=== PATIENT | male | born 1955 | race Caucasian/White ===

== ENCOUNTER → 2022-01-16 15:45 | Outpatient (BNVA) | payer MEDICARE, SELFPAY | PROVIDERS: Family Provider Family Medicine; Visit Provider Internal Medicine Cardiovascular Disease | DX: I10 Essential (primary) hypertension (principal); I25.10 Atherosclerotic heart disease of native coronary artery without angina pectoris; F17.200 Nicotine dependence, unspecified, uncomplicated; Z98.890 Other specified postprocedural states; R91.1 Solitary pulmonary nodule; E78.49 Other hyperlipidemia | CPT/HCPCS: 36415; 80053; 80061; 83721; 85025; 99214 ==

== ENCOUNTER 2022-03-07 12:03 | Outpatient (CLI) | payer MEDICARE, SELFPAY ==
--- NOTE | 2022-03-07 12:00 | CT_ITS ---
WS: [id number] LDCT LUNG CANCER SCREENING HISTORY: Chronic active smoker with 55 PKY h/o smoking TECHNIQUE: Axial imaging performed from the apices to 1 cm below the costophrenic angles. Coronal and sagittal reformats are submitted with axial MIP series. All CT scans at [facility] use at least one of these dose optimization techniques: automated exposure control; mA and/or kV adjustment per patient size (includes targeted exams where dose is matched to clinical indication); or iterativ e reconstruction. DLP: 85.30 mGy.cm DIvol: Mean CTDIvol: 1.60 (mGy) COMPARISON: 10/12/2017 Diagnostic quality: Satisfactory Lung Nodules: 2 to 3 mm nodules in the upper lung lee and subpleural nodule RIGHT lower lobe. The largest nodule is 3 mm at the RIGHT apex. Endobronchial lesion in the proximal LEFT mainstem bronchus . Nodule measures 7 mm. Lungs: No abnormality. Heart: Mildly enlarged heart. Mild scattered coronary artery calcifications. Other findings: Mild atherosclerosis aorta. Normal size pulmonary artery. Small hiatal hernia. Radha us low-attenuation nodules within the liver are unchanged and likely cysts. LEFT adrenal nodule 13 x 12 mm. Similar to the study from 2018. Moderate spondylitic changes in the thoracic spine. CT/CT lung screening [id number] IMPRESSION: LUNG-RADS: 4A-Probably Suspicious FOLLOW UP: 3 Month LDCT OTHER FINDINGS (S MODIFIER): None. Short-term follow-up low-dose CT recommended for the endobronchial lesion.
== END 2022-03-07 12:04 | disposition home or self-care (01) ==
LOC: RAD 12:05
PROVIDERS: Family Provider Family Medicine; Visit Provider Internal Medicine Cardiovascular Disease
DX: Z12.2 Encounter for screening for malignant neoplasm of respiratory organs (principal); F17.210 Nicotine dependence, cigarettes, uncomplicated; R91.1 Solitary pulmonary nodule
CPT/HCPCS: 71271

== ENCOUNTER 2022-05-24 16:41 | Outpatient (CLI) | payer MEDICARE, SELFPAY ==
--- NOTE | 2022-05-24 17:00 | CT_ITS ---
WS: [id number] CT CHEST WITHOUT INTRAVENOUS CONTRAST HISTORY: 7 mm nodule in left main stem bronchus/multiple nodules TECHNIQUE: Contiguous 5 mm axial imaging performed on the thorax. Coronal and sagittal reformats are submitted. All CT scans at [facility] use at least one of these dose optimization techniques: automated exposure control; mA and/or kV adjustment per patient size (includes targeted exams where dose is matched to clinical indication); or iterative reconstruction. CONTRAST: None DLP: 294.01 mGy.cm COMPARISON: 03/07/2022 Lungs and central airway: Mild pulmonary hyperexpansion. LEFT proximal main bronchus lesions no longe r present. This is probably mucous secretion. No enlargement of the micronodules in the upper lobes o r subpleural, subcentimeter nodules in the lower lobes. No pneumonia. Pleura: Normal. No pleural effusion. Heart and pericardium: Normal size. No coronary artery calcifications. Mediastinum and rui: No mediastinum or hilar adenopathy. Vessels: Mild atherosclerosis aorta. Normal size pulmonary artery. Moderate coronary artery calcifica tion. Chest wall and lower neck: No soft tissue masses. Upper abdomen: Low-attenuation lesions within the liver are unchanged since 2018. Mild stable thicken ing and nodularity of the LEFT adrenal gland. Small hiatal hernia. Splenic granulomata. Osseous structures: Moderate degenerative changes throughout the thoracic spine. CT/CT chest wo con [id number] IMPRESSION: 1. Interval resolution LEFT mainstem bronchial nodule which is probably mucous secretion. 2. No interval change micronodules upper lung lee and the subpleural nodule s in the lower lung lee. 3. Mild atherosclerosis aorta. No adenopathy. 4. Hepatic cysts and small hiatal hernia.
== END 2022-05-24 16:42 | disposition home or self-care (01) ==
LOC: RAD 16:43
PROVIDERS: Visit Provider Internal Medicine Cardiovascular Disease
DX: R91.1 Solitary pulmonary nodule (principal); F17.200 Nicotine dependence, unspecified, uncomplicated; K76.89 Other specified diseases of liver; K44.9 Diaphragmatic hernia without obstruction or gangrene; I70.0 Atherosclerosis of aorta
CPT/HCPCS: 71250

== ENCOUNTER → 2023-01-15 15:23 | Outpatient (BNVA) | payer MEDICARE, SELFPAY | PROVIDERS: Visit Provider Internal Medicine Cardiovascular Disease | DX: I10 Essential (primary) hypertension (principal); E78.5 Hyperlipidemia, unspecified; I25.10 Atherosclerotic heart disease of native coronary artery without angina pectoris | CPT/HCPCS: 36415; 80053; 80061; 85025; 99214 ==

== ENCOUNTER → 2023-12-15 09:18 | Outpatient (BNVA) | payer MEDICARE, SELFPAY | PROVIDERS: Visit Provider Internal Medicine | DX: I25.10 Atherosclerotic heart disease of native coronary artery without angina pectoris (principal); I10 Essential (primary) hypertension; F17.200 Nicotine dependence, unspecified, uncomplicated; E78.49 Other hyperlipidemia; R91.1 Solitary pulmonary nodule | CPT/HCPCS: 99213 ==

== ENCOUNTER 2024-07-15 17:44 | Inpatient (IN) | payer MEDICARE, SELFPAY ==
[2024-07-15] VITALS (7 sets, daily range): BP systolic 80–118; BP diastolic 58–76; PULSE 71–112; RESP 17–20; TEMP 36.7–36.9; O2SAT 91–100; BMI 23.6
[2024-07-15 18:18] LABS: Basophils % 0.4 %; Eosinophils % 0.1 %; Hematocrit 30.9 % (37-53); Lymphocytes # 0.9 10^3/uL (0.8-4.8); Lymphocytes % 11.7 %; Mean Corpuscular Hemoglobin 30.9 pg (27-33); Mean Corpuscular Volume 90.9 fl (82-101); Mean Platelet Volume 9.2 fL (7.4-10.4); Monocytes # 0.3 10^3/uL (0.2-0.9); Monocytes % 3.5 %; Neutrophils # 6.73 10^3/uL (1.8-7.7); Neutrophils % 83.8 %; Nucleated Red Blood Cells % 0 %; Platelet Count 290 10^3/cmm (157-399); Red Cell Distribution Width 13.2 % (12.1-15.1); White Blood Count 8.03 10^3/uL (3.29-11.43)
--- NOTE | 2024-07-15 18:33 | ED_ITS ---
HPI - GI Bleed 2 General: Chief complaint: GI Bleed Stated complaint: blood in stool History of Present Illness: 68-year-old man with history of hyperten sunshine, hyperlipidemia and coronary artery disease status post stents in 2018 and anticoagulation on Plavix who presents to the emergency room with complaints of black tarry stools and weakness. He says overnight he had multiple episodes of black tarry stools. Today he feels very weak. He says maybe mildly lightheaded but no altered mental status. No fevers. No abdominal pain. No vomiting. He has never had colonoscopy or endoscopy. Never had any GI bleeds in the past. Related Data Home Medications ?Medication ?Instructions ?Recorded ?Confirmed aspirin 81 mg tablet,delayed 81 mg PO DAILY 05/17/19 0 12/15/23 release (Adult Low Dose Aspirin) Previous Rx's ?Medication ?Instructions ?Recorded lisinopril 40 mg tablet 40 mg PO DAILY #90 tabs 01/16 08/07 metoprolol succinate 25 mg 25 mg PO DAILY #90 tabs tablet,extended release 24 hr hydrochlorothiazide 25 mg tablet See Rx Instructions . Route 03/08/24 .COMPLEX #90 tabs clopidogrel 75 mg tablet (Plavix) 75 mg PO DAILY #90 t abs 03/23/24 simvastatin 40 mg tablet See Rx Instructions .Route 0 04/16/24 .COMPLEX #90 tabs Allergies Allergy/AdvReac Type Severity Reaction Status Date / Time No Known Allergies Allergy Verified 12/15/23 09:27 Review of Systems 2 Narrative: Constitutional symptoms: Negative except as documented in HPI. Skin symptoms: Negative except as documented in HPI. Eye symptoms: Negative except as documented in HPI. ENMT symptoms: Negative except as documented in HPI. Respiratory symptoms: Negative except as documented in HPI. Cardiovascular symptoms: Negative except as documented in HPI. Gastrointestinal symptoms: Negative except as documented in HPI. Genitourinary symptoms: Negative except as documented in HPI. Musculoskeletal symptoms: Negative except as documented in HPI. Neurologic symptoms: Negative except as documented in HPI. Psychiatric symptoms: Negative except as documented in HPI. Endocrine symptoms: Negative except as documented in HPI. PFSH ED 2 PFSH: Medical History Lung nodule Current smoker ASHD (arteriosclerotic heart disease) Hyperlipidemia HTN (hypertension) History of non-ST elevation myocardial infarction (NSTEMI) Surgical History S/P knee surgery ACL left knee Family History Father Diabetes Hypertension Social History Smoking and tobacco/nicotine status: current every day tobacco/nicotine user Physical Exam 2 Narrative: EXAM NARRATIVE: General: Alert, no acute distress. Skin: Warm, dry. Pale appearing Head: Normocephalic, atraumatic. Neck: Supple, trachea midline. Eye: Extraocular movements are intact. Ears, nose, mouth and throat: mucosa moist. Cardiovascular: Regular, Normal peripheral perfusion. Respiratory: Lungs are clear to auscultation, respirations are non-labored, breath sounds are equal, Symmetrical chest wall expansion. Gastrointestinal: Soft, Nontender, Non distended Musculoskeletal: Normal ROM, no deformity. Neurological: Alert and oriented, No focal neurological deficit observed. Psychiatric: Cooperative, appropriate mood & affect. Course 2 Vital Signs: Vital signs: Vital Signs Temperature 98.0 F 07/15/24 17:50 Pulse Rate 77 07/15/24 19:35 Respiratory Rate 18 07/15/24 19:35 Blood Pressure 118/76 07/15/24 19:35 Pulse Oximetry 100 07/15/24 19:35 Oxygen Delivery Me thod Nasal Cannula 07/15/24 18:40 Oxygen Flow Rate 3 07/15/24 18:40 MDM - GI Bleed Medical Decision Making Medical decision making: Differential diagnosis including but not limited to and based on the above HPI, review of systems and physical exam: In a patient with upper GI bleeding would have concern for upper gi bleed from varices or ulcer. Concern for anemia. Concern for liver disease. concern for anticoagulation. Orders placed to evaluate differential diagnosis based on the above differential, HPI and physical exam Lab Review: Laboratory results were reviewed and interpreted by myself the emergency room physician. No leukocytosis. Hemoglobin is down to 10.5 from almost 15 a couple of years ago. Platelets are normal. Liver enzymes are normal. Patient's BUN and creatinine are significantly elevated at 74 and 1.4 in a pattern that would suggest recent upper GI bleeding. Coags normal. Platelets normal. I reviewed the patient's medical record. Reexamination: Patient's blood pressure responded slightly to fluids getting up to over 100. Initially he was in the low 90s and upper 80s systolic. No increased work of breathing. No altered mental status. No focal motor deficits. Patient has had no further black tarry stools while here in the emergency room. No vomiting. Consultation: I spoke with Dr. Lozano with general surgery who recommends admission to the ICU. He agrees with Protonix and fluids. He will plan for endoscopy tomorrow morning. Consultation: I spoke with Dr. August who is on-call for the hospitalist service who agrees to admission. Assessment and plan: Upper GI bleeding Anticoagulation on Plavix ?2 L normal saline. 80 mg IV Protonix. No further bleeding at this time. Type and screen sent. -I discussed the patient with the hospitalist on-call who is admitting the patient. - Discussed findings and plan with patient. Answered any questions. - All laboratory values were reviewed and interpreted personally by myself, the ER physician - All imaging was reviewed and interpreted personally by myself, the ER physician. - Evaluation and treatment of this problem were appropriate in the emergency setting Lab Data 07/15/24 18:08 07/15/24 18:08 Laboratory Results WBC 8.03 10^3/uL (3.29-11.43) 07/15/24 18:08 RBC 3.40 10^6/uL (3.85-5.65) L 07/15/24 18:08 Hgb 10.50 g/dL (11.27-16.99) L 07/15/24 18:08 Hct 30.9 % (37-53) L 07/15/24 18:08 MCV 90.9 fl (82-101) 07/15/24 18:08 MCH 30.9 pg (27-33) 07/15/24 18:08 MCHC 34.0 g/dL (30-55) 07/15/24 18:08 RDW 13.2 % (12.1-15.1) 07/15/24 18:08 Plt Count 290 10^3/cmm (157-399) 07/15/24 18:08 MPV 9.2 fL (7.4-10.4) 07/15/24 18:08 Neut % (Auto) 83.8 % 07/15/24 18:08 Lymph % (Auto) 11.7 % 07/15/24 18:08 Sanders % (Auto) 3.5 % 07/15/24 18:08 Eos % (Auto) 0.1 % 07/15/24 18:08 Baso % (Auto) 0.4 % 07/15/24 18:08 Neut # (Auto) 6.73 10^3/uL (1.8-7.7) 07/15/24 18:08 Lymph # (Auto) 0.9 10^3/uL (0.8-4.8) 07/15/24 18:08 Sanders # (Auto) 0.3 10^3/uL (0.2-0.9) 07/15/24 18:08 Eos # (Auto) 0.0 10^3/uL (0.0-0.8) 07/15/24 18:08 Baso # (Auto) 0.0 10^3/uL (0.0-0.1) 07/15/24 18:08 Nucleated RBC % (auto) 0 % 07/15/24 18:08 Nucleated RBCs # 0.0 /100WBC 07/15/24 18:08 PT 13.00 SECONDS (12.1-14.9) 07/15/24 18:08 INR 0.92 (0.8-1.2) 07/15/24 18:08 APTT 23.8 SECONDS (23.9-36.7) L 07/15/24 18:08 Sodium 136 mmol/L (136-145) 07/15/24 18:08 Potassium 4.3 mmol/L (3.5-5.1) 07/15/24 18:08 Chloride 100 mmol/L (98-107) 07/15/24 18:08 Carbon Dioxide 21 mmol/L (22-29) L 07/15/24 18:08 Anion Gap 19.3 (5-19) H 07/15/24 18:08 BUN 74 mg/dL (8-23) H 07/15/24 18:08 Creatinine 1.4 mg/dL (0.7-1.2) H 07/15/24 18:08 GFR Calculation 50.1 mL/min (90-130) L 07/15/24 18:08 Glucose 167 mg/dL (65-115) H 07/15/24 18:08 Calculated Osmolality 308 mOsm/kg (285-295) H 07/15/24 18:08 Lactic Acid 2.1 mmol/L (0.5-2.2) 07/15/24 18:08 Calcium 9.0 mg/dL (8.5-10.5) 07/15/24 18:08 Total Bilirubin 0.2 mg/dL (0.15-1.2) 07/15/24 18:08 AST 11 U/L (0-40) 07/15/24 18:08 ALT 9 U/L (0-41) 07/15/24 18:08 Alkaline Phosphatase 51 U/L (40-130) 07/15/24 18:08 Total Protein 6.1 g/dL (6.6-8.7) L 07/15/24 18:08 Albumin 3.6 g/dL (3.5-5.2) 07/15/24 18:08 Globulin 2.5 g/dL (1.3-4.6) 07/15/24 18:08 Blood Type O Positive 07/15/24 18:08 Rho(D) Type Rh positive 07/15/24 18:08 Antibody Screen Negative 07/15/24 18:08 No radiology studies performed this visit Discharge Plan Discharge Condition: Stable Prescriptions: No Action aspirin [Adult Low Dose Aspirin] 81 mg tablet,delayed release (DR/EC) 81 mg PO DAILY lisinopril 40 mg tablet 40 mg PO DAILY Qty: 90 3RF metoprolol succinate 25 mg tablet extended release 24 hr 25 mg PO DAILY Qty: 90 3RF hydrochlorothiazide 25 mg tablet See Rx Instructions .ROUTE .COMPLEX Qty: 90 3RF Dose Instruction: TAKE 2 TABLETS (25MG) DAILY Rx Instructions: TAKE 1 TABLETS (25MG) DAILY clopidogrel [Plavix] 75 mg tablet 75 mg PO DAILY Qty: 90 3RF simvastatin 40 mg tablet See Rx Instructions .ROUTE .COMPLEX Qty: 90 3RF Dose Instruction: TAKE 1 TABLET DAILY Rx Instructions: TAKE 1 TABLET DAILY Print Language: Emirati Coding Level of Care Code ED Line Therapist for Nabila Baker
[2024-07-15 18:34] LABS: INR 0.92 (0.8-1.2)
[2024-07-15 18:35] LABS: Partial Thromboplastin Time 23.8 SECONDS (23.9-36.7)
[2024-07-15 18:39] LABS: Alanine Aminotransferase 9 U/L (0-41); Albumin Level 3.6 g/dL (3.5-5.2); Alkaline Phosphatase 51 U/L (40-130); Anion Gap 19.3 (5-19); Aspartate Amino Transferase 11 U/L (0-40); Blood Urea Nitrogen 74 mg/dL (8-23); Carbon Dioxide 21 mmol/L (22-29); Chloride 100 mmol/L (98-107); Creatinine Clr Calc Pharmacy 49.9464; Globulin 2.5 g/dL (1.3-4.6); Glomerular Filtration Rate 50.1 mL/min (90-130); Glucose 167 mg/dL (65-115); Osmolality Calculated 308 mOsm/kg (285-295); Potassium 4.3 mmol/L (3.5-5.1); Sodium 136 mmol/L (136-145); Total Bilirubin 0.2 mg/dL (0.15-1.2); Total Protein 6.1 g/dL (6.6-8.7)
[2024-07-15] MEDS: sodium chloride 0.9% 1,000 ML 999 ML IV ×2 (18:39→19:26)
[2024-07-15] MEDS: pantoprazole 40 mg SDV 80 MG IVP (18:39)
[2024-07-15 18:40] LABS: Lactic Sepsis W/Reflex 2.1 mmol/L (0.5-2.2)
--- NOTE | 2024-07-15 19:52 | P.HP_ITS ---
Providers/Chief Complaint 2 Admitting Physician: Kayode August MD Chief Complaint: blood in stool History of Present Illness Jason Pantoja is a 68 year old male PTCA and stent 2018 to LAD with 1 drug- eluting stent. Also had luminal irregularities in the left main proximal 30% LAD and circumflex 60% the prestent LAD stenosis shortly after the first septal branch was 90% Patient continues on aspirin and Plavix but does not have chest pain. He smokes 1 pack/day. 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 He denies vomiting stools are little loose but water remained clear with the stooling no bright red blood. Patient had 1 episode of sweats with ambulation he was dyspneic on exertion but denies palpitations or vision change. Has not had coughing. Patient was found to have hemoglobin 10 down from baseline of 14. He is referred to general surgeon for evaluation and will have EGD in the morning. He is requested to be admitted. Patient received 2 fluid boluses vital signs are much improved. He was hypotensive on presentation with systolic 60/50 then 89/64 now 115/70 heart rate 74 Review of Systems 2 Narrative: General no fevers chills no weight gain or weight loss Cardiovascular no chest pain palpitations or edema Resp no shortness of breath cough wheezing he does have dyspnea on exertion GI no nausea vomiting he has had loose dark stools but not diarrhea no constipation no dysuria hematuria Neuro no seizure strokes limb weakness Musculoskeletal no pain Medications/Allergies Home Medications ?Medication ?Instructions ?Recorded ?Confirmed ?Last Taken ?Type aspirin 81 mg tablet,delayed 81 mg PO DAILY 05/17/19 0 12/15/23 Unknown History release (Adult Low Dose Aspirin) lisinopril 40 mg tablet 40 mg PO DAILY #90 tabs 01/16 08/07 Unknown Rx metoprolol succinate 25 mg 25 mg PO DAILY #90 tabs Unknown Rx tablet,extended release 24 hr hydrochlorothiazide 25 mg tablet See Rx Instructions . Route 03/08/24 Unknown Rx .COMPLEX #90 tabs clopidogrel 75 mg tablet (Plavix) 75 mg PO DAILY #90 t abs 03/23/24 Unknown Rx simvastatin 40 mg tablet See Rx Instructions .Route 0 04/16/24 Unknown Rx .COMPLEX #90 tabs Allergies Allergy/AdvReac Type Severity Reaction Status Date / Time No Known Allergies Allergy Verified 12/15/23 09:27 PFSH Acute 2 PFSH: Medical History (Updated 07/15/24 @ 20:02 by Kayode August MD) Presence of drug coated stent in LAD coronary artery Lung nodule Current smoker ASHD (arteriosclerotic heart disease) Hyperlipidemia HTN (hypertension) History of non-ST elevation myocardial infarction (NSTEMI) Surgical History H/O vasectomy S/P knee surgery ACL left knee Family History Father Diabetes Hypertension Social History (Updated 07/15/24 @ 20:01 by Kayode August MD) Smoking and tobacco/nicotine status: current every day tobacco/nicotine user cigarettes Packs smoked per day: 1 Years cigarettes smoked: 50 Alcohol intake: former Additional social history: Wants full code Household members: spouse Marital status: Vitals/I&O/Wt Last Vital Signs Temp 98.0 F 07/15/24 17:50 Pulse 77 07/15/24 19:35 Resp 18 07/15/24 19:35 BP 118/76 07/15/24 19:35 Pulse Ox 100 07/15/24 19:35 O2 Del Method Nasal Cannula 07/15/24 18:40 O2 Flow Rate 3 07/15/24 18:40 Weight last 48 hrs Weight 70.307 kg Physical Exam 2 Narrative: General well-developed well-nourished thin male in no acute cardiopulmonary stress CV regular rate and rhythm Lungs clear to auscultation bilaterally Abdomen positive bowel sounds soft nontender Calves no tenderness cords or pedal edema Neuro moves all extremities symmetrically speech is clear face is symmetric Data 07/15/24 18:08 07/15/24 18:08 A&P Assessment and plan (1) Upper GI bleed: Continue with Protonix twice a day 40 mg IV. Hold aspirin and Plavix. Hold blood pressure medicines for now except for the metoprolol 25 mg XL daily. Patient will be n.p.o. after midnight and should be only on clear liquids or ice chips for now until morning for EGD (2) Orthostatic hypotension: Additional second liter bolus now and continue with IV fluids we will check orthostatic blood pressures every shift (3) ASHD (arteriosclerotic heart disease): Stable with LAD drug-eluting stent. He has had this since 2018. Consider dropping the clopidogrel (4) Current smoker: Start nicotine patch 21 mg daily. I counseled the patient regarding vascular disease and smoking. PDMP PDMP Reviewed: Not Reviewed Attestations 2 Medical Necessity Statement*: Patient will be in the hospital for anticipated 2 midnights Coding Level of Care Code 01315 Diagnoses Upper GI bleed K92.2 Orthostatic hypotension I95.1 ASHD (arteriosclerotic heart disease) I25.10 Current smoker F17.200 Time Spent (min) 70
[2024-07-15 20:02] LABS: Reflex Lactate Order REFLEX LACTIC ORDERD
[2024-07-15 20:51] LABS: Lactic Acid level (Lactate) 1.2 mmol/L (0.5-2.2)
[2024-07-15] MEDS: D5-NS 0.45% + KCL 20 mEq 20 MEQ/1,000 ML BAG 125 MEQ IV (21:35)
[2024-07-16] VITALS (14 sets, daily range): BP systolic 92–114; BP diastolic 60–70; PULSE 54–74; RESP 15–18; TEMP 36.1–36.8; O2SAT 92–100
[2024-07-16 05:10] LABS: Basophils % 0.3 %; Eosinophils % 0.5 %; Hematocrit 24.1 % (37-53); Lymphocytes # 1.4 10^3/uL (0.8-4.8); Lymphocytes % 18.6 %; Mean Corpuscular HGB Conc 33.6 g/dL (30-55); Mean Corpuscular Hemoglobin 31.3 pg (27-33); Mean Corpuscular Volume 93.1 fl (82-101); Mean Platelet Volume 9.4 fL (7.4-10.4); Monocytes # 0.4 10^3/uL (0.2-0.9); Monocytes % 5.8 %; Neutrophils # 5.47 10^3/uL (1.8-7.7); Neutrophils % 74.4 %; Nucleated Red Blood Cells % 0 %; Platelet Count 224 10^3/cmm (157-399); Red Blood Count 2.59 10^6/uL (3.85-5.65); Red Cell Distribution Width 13.3 % (12.1-15.1); White Blood Count 7.36 10^3/uL (3.29-11.43)
[2024-07-16] MEDS: pantoprazole 40 mg SDV IVP (05:18)
[2024-07-16] MEDS: D5-NS 0.45% + KCL 20 mEq 20 MEQ/1,000 ML BAG 125 MEQ IV (05:19)
[2024-07-16 05:26] LABS: Anion Gap 12.7 (5-19); Blood Urea Nitrogen 58 mg/dL (8-23); Carbon Dioxide 24 mmol/L (22-29); Chloride 105 mmol/L (98-107); Creatinine Clr Calc Pharmacy 55.4032; Glomerular Filtration Rate 54.6 mL/min (90-130); Glucose 105 mg/dL (65-115); Osmolality Calculated 303 mOsm/kg (285-295); Potassium 3.7 mmol/L (3.5-5.1); Sodium 138 mmol/L (136-145)
--- NOTE | 2024-07-16 08:50 | ANES.PREANE2 ---
Pre-Anesthetic Assessment Height/Weight: Height 5 ft 10 in Weight 166 lb 14.4 oz Temp Pulse Resp BP Pulse Ox O2 Del Method O2 Flow Rate 97.8 F 66 17 98/63 100 Nasal Cannula 2 07/16/24 07:47 07/16/24 07:47 07/16/24 07:47 07/16/24 07:47 07/16/24 07:47 07/16/24 07:47 07/16/24 07:47 Preop Diagnosis: GI bleed Operation Date: 07/16/24 09:15 Proposed Procedures p EGD with possible biopsy, possible bleeding control(Not Applicable) - Juan Carlos Lozano MD Operation Date: 07/16/24 09:30 Proposed Procedures p EGD(Not Applicable) - Juan Carlos Lozano MD Was Beta Geetha taken within 24 hours: Yes Was Clonidine taken within 24 hours: N/A Last intake: Intake Last Liquid Date 07/15/24 Last Liquid Time 23:00 Last Solid Date 07/15/24 Last Solid Time 12:00 Social Tobacco and No tobacco Exam alert, oriented x 3, clear to auscultation bilaterally and regular rate & rhythm Airway Submandibular: within normal limits Cervical ROM: within normal limits Mallampati: Class III Dentition: full Comments: Comments: Smaller mouth opening Anesthetic Plan ASA status: 3 Anesthesia: MAC Other: Patient presents yesterday evening with dark tarry stools. Hemoglobin 10 at admission, 8.1 this a.m. No prior issues with anesthesia History of CAD, s/p stent 2017. On chronic Plavix. Last taken 07/15/2024 Hypertension on lisinopril and hydrochlorothiazide as well as metoprolol Current smoker Vital stable this a.m., BP 98/63. Patient is on 2 L nasal cannula Type and screen performed Plan for MAC anesthesia Medications/Allergies Home Medications ?Medication ?Instructions ?Recorded ?Confirmed ?Last Taken ?Type aspirin 81 mg tablet,delayed 81 mg PO DAILY 05/17/19 07/15/24 07/15/24 History release (Adult Low Dose Aspirin) lisinopril 40 mg tablet 40 mg PO DAILY #90 tabs 02/09/24 07/15/24 07/15/24 Rx metoprolol succinate 25 mg 25 mg PO DAILY #90 tabs 02/10/24 07/15/24 07/15/24 Rx tablet,extended release 24 hr hydrochlorothiazide 25 mg tablet See Rx Instructions .Route 03/08/24 07/15/24 07/15/24 Rx .COMPLEX #90 tabs clopidogrel 75 mg tablet (Plavix) 75 mg PO DAILY #90 tabs 03/23/24 07/15/24 07/15/24 Rx simvastatin 40 mg tablet See Rx Instructions .Route 04/16/24 07/15/24 07/14/24 Rx .COMPLEX #90 tabs acetaminophen 500 mg capsule 1,000 mg PO Q6H PRN Pain 07/15/24 07/15/24 07/15/24 History naproxen sodium 220 mg tablet 440 mg PO BID PRN Pain 07/15/24 07/15/24 07/15/24 History Allergies Allergy/AdvReac Type Severity Reaction Status Date / Time No Known Allergies Allergy Verified 12/15/23 09:27 Current Medications Generic Name Dose Route Start Last Admin Trade Name Freq PRN Reason Stop Dose Admin Potassium Chloride/Dextrose/Sod Cl 20 meq in 1,000 mls @ 125 mls/hr 07/15/24 21:07 07/16/24 05:19 D5-Ns 0.45% + Kcl 20 Meq IV 125 mls/hr .Q8H ATIYA Administration Pantoprazole Sodium 40 mg 07/16/24 06:00 07/16/24 05:18 Pantoprazole 40 Mg Sdv IVP 40 mg Q12H ATIYA Administration PFSH Anesthesia Medical History (Updated 07/15/24 @ 20:02 by Kayode August MD) Presence of drug coated stent in LAD coronary artery Lung nodule Current smoker ASHD (arteriosclerotic heart disease) Hyperlipidemia HTN (hypertension) History of non-ST elevation myocardial infarction (NSTEMI) Surgical History H/O vasectomy S/P knee surgery ACL left knee Family History Father Diabetes Hypertension Social History (Updated 07/15/24 @ 20:01 by Kayode August MD) Smoking and tobacco/nicotine status: current every day tobacco/nicotine user cigarettes Packs smoked per day: 1 Years cigarettes smoked: 50 Alcohol intake: former Additional social history: Wants full code Household members: spouse Marital status: Data Anesthesia 07/16/24 04:23 07/16/24 04:23 Short CBC 07/15/24 07/16/24 Range/Units 18:08 04:23 WBC 8.03 7.36 (3.29-11.43) 10^3/uL Hgb 10.50 L 8.10 L (11.27-16.99) g/dL Hct 30.9 L 24.1 L (37-53) % MCV 90.9 93.1 (82-101) fl Plt Count 290 224 (157-399) 10^3/cmm Neut % (Auto) 83.8 74.4 % Neut # (Auto) 6.73 5.47 (1.8-7.7) 10^3/uL BMP 07/15/24 07/16/24 18:08 04:23 Sodium 136 138 Potassium 4.3 3.7 Chloride 100 105 Carbon Dioxide 21 L 24 BUN 74 H 58 H Creatinine 1.4 H 1.3 H Glucose 167 H 105 Calcium 9.0 8.0 L Liver Function 07/15/24 Range/Units 18:08 Total Bilirubin 0.2 (0.15-1.2) mg/dL AST 11 (0-40) U/L ALT 9 (0-41) U/L Alkaline Phosphatase 51 (40-130) U/L Albumin 3.6 (3.5-5.2) g/dL Blood Bank 07/15/24 18:08 Blood Type O Positive Rho(D) Type Rh positive Antibody Screen Negative Coags 07/15/24 18:08 PT 13.00 INR 0.92 APTT 23.8 L
--- NOTE | 2024-07-16 09:09 | P.CONIM_ITS ---
Providers/Reason For Consult 2 Consulting Physician/Specialty*: Kayode August MD hospitalist Reason for Consult*: Evaluate upper GI bleed Requesting Physician: Kayode August MD hospitalist Attending Physician: Karin Toure MD History of Present Illness History of Present Illness Jason Pantoja is a 68 year old male with a day history of black stools and drop of hgb from about 12 now 6 with VSS and slowing or stopped black stools. He has never had endoscopy before either EGD or colonoscopy. Dad was a smoker and from metastatic cancer of unknown primary in his . He is on plavix for stent placed about 4-5 years ago. No recent MS, CVA or VTE. He denies history of cirrhosis or previous PUD and denies pain or N/V. He does not drink alcohol currently. Review of Systems 2 Narrative: Constitutional: denies rigors, singnificant weight gain, increased appetite HEENT: denies chronic cough, blurry vision, excessive tearing, eye pain, flashing lights, odynophagia, painful mastication, change in voice, change in taste, chronic sore throat, hypersalivation Heart: denies racing heart, palpitations, othropnea, PND Lungs: denies hemoptysis, pain with deep inspiration, chronic bronchitis GI: denies hematemesis, hematochezia, dysphagia, tenesmus : denies polyuria, hematuria, painful micturation Musculoskeletal: denies hemarthrosis, Muscle wasting, change in amubation Neuro: denies new onset syncope, dysesthesia, dysequilibrium, ptosis eyelid or face SKin: denies new onset hyperalgia, new rash new cyanosis Endocrine: denies new polyuria, polydipsia, polyphagia, heat intolerance, excessive energy Hem/Onc: denies new petechiae, swollen glands, new excessive epstaxis Psych: denies racing thought Medications/Allergies Home Medications ?Medication ?Instructions ?Recorded ?Confirmed ?Last Taken ?Type aspirin 81 mg tablet,delayed 81 mg PO DAILY 05/17/19 0 07/15/24 07/15/24 History release (Adult Low Dose Aspirin) lisinopril 40 mg tablet 40 mg PO DAILY #90 tabs 01/1607/15/24 07/15/24 Rx metoprolol succinate 25 mg 25 mg PO DAILY #90 tabs 07/15/24 07/15/24 Rx tablet,extended release 24 hr hydrochlorothiazide 25 mg tablet See Rx Instructions . Route 03/08/24 07/15/24 07/15/24 Rx .COMPLEX #90 tabs clopidogrel 75 mg tablet (Plavix) 75 mg PO DAILY #90 t abs 03/23/24 07/15/24 07/15/24 Rx simvastatin 40 mg tablet See Rx Instructions .Route 0 04/16/24 07/15/24 07/14/24 Rx .COMPLEX #90 tabs acetaminophen 500 mg capsule 1,000 mg PO Q6H PRN Pain 07/15/24 07/15/24 07/15/24 History naproxen sodium 220 mg tablet 440 mg PO BID PRN Pain 0 07/15/24 07/15/24 07/15/24 History Allergies Allergy/AdvReac Type Severity Reaction Status Date / Time No Known Allergies Allergy Verified 12/15/23 09:27 Current Medications Generic Name Dose Route Start Last Admin Trade Name Freq PRN Reason Stop Dose Admin Potassium Chloride/Dextrose/Sod Cl 20 meq in 1,000 mls @ 125 mls/hr 07/15/24 21:07 07/16/24 05:19 D5-Ns 0.45% + Kcl 20 Meq IV 125 mls/hr .Q8H ATIYA Administration Pantoprazole Sodium 40 mg 07/16/24 06:00 07/16/24 05:18 Pantoprazole 40 Mg Sdv IVP 40 mg Q12H ATIYA Administration PFSH Acute 2 PFSH: Medical History (Updated 07/15/24 @ 20:02 by Kayode August MD) Presence of drug coated stent in LAD coronary artery Lung nodule Current smoker ASHD (arteriosclerotic heart disease) Hyperlipidemia HTN (hypertension) History of non-ST elevation myocardial infarction (NSTEMI) Surgical History H/O vasectomy S/P knee surgery ACL left knee Family History Father Diabetes Hypertension Social History (Updated 07/15/24 @ 20:01 by Kayode August MD) Smoking and tobacco/nicotine status: current every day tobacco/nicotine user cigarettes Packs smoked per day: 1 Years cigarettes smoked: 50 Alcohol intake: former Additional social history: Wants full code Household members: spouse Marital status: Vitals/I&O/Wt Last Vital Signs Temp 97.8 F 07/16/24 07:47 Pulse 66 07/16/24 07:47 Resp 17 07/16/24 07:47 BP 98/63 07/16/24 07:47 Pulse Ox 100 07/16/24 07:47 O2 Del Method Nasal Cannula 07/16/24 07:47 O2 Flow Rate 2 07/16/24 07:47 07/15/24 07/16/24 07/16/24 22:59 06:59 14:59 Intake Total 1349.65 / 1349.65 966.667 / 2316.317 320 / 320 Balance 1349.65 / 1349.65 966.667 / 2316.317 320 / 320 Weight last 48 hrs Weight 166 lb 14.4 oz Weight 165 lb Weight 155 lb Physical Exam 2 Narrative: Patient is a well developed well nourished and in NAD and is afebrile with vitals stable and is answering questions appropriately with a normal affect and is alert and oriented x3 HEENT: normocephalic with normal external ears and nonicteric, oral mucosa moist and dentition normal for age, trachea midline with no large masses visualized Heart: RRR, no gallops murmurs or rubs, normal PMI with no thrills Lungs: normal excursions, no loud audible wheezing, no subcutaneous emphysema Abdomen: nondistended, no gross hepatosplenomegaly, no masses, no rigidity or rebound, no loud borborygmi Neuro: nonfocal, PETERS, grossly normal sensation Musculoskeletal: good muscle tone, no fasciculations, normal gait Skin: pink warm and dry with no rashes or ecchymosis Vascular: good radial pulses, no ulceration, less than 2 second capillary refill in hand : deferred Data 07/16/24 04:23 07/16/24 04:23 A&P Assessment and plan (1) Upper GI bleed: Plan Patient is hemodynamically stable but hgb down from normal to 8 today with no recent black stools. He is on plavix for heart stent about 4-5 years ago. Will undergo EGD with possible control of bleeding with clips,cautery, injection or combination of these. Risks include bleeding, infection, peroforation, missed lesion, more procedures, aspiration. PDMP PDMP Reviewed: Not Reviewed Coding Level of Care Code 14156 Diagnoses Upper GI bleed K92.2
--- NOTE | 2024-07-16 10:05 | ANE.PACU2 ---
Inpatient post-anesthesia follow up: Airway intact: Yes Vital signs: Temperature 97.8 F Pulse Rate 66 Respiratory Rate 16 Blood Pressure 104/67 Pulse Oximetry 100 Oxygen Delivery Me thod Room Air Oxygen Flow Rate 2 Fraction of Inspir ed Oxygen Hydration adequate: Yes Nausea and vomiting: No Pain level: 1 Mental status: Baseline
[2024-07-16] MEDS: atorvastatin 40 mg Tablet 20 MG PO (10:25)
[2024-07-16 10:45] LABS: Hematocrit 24.8 % (37-53)
[2024-07-16] MEDS: sucralfate 1 gm/10 mL Oral Liq UDC PO ×3 (10:57→20:54)
--- NOTE | 2024-07-16 11:21 | PC.SOCIAL ---
IMM Updated Updated pt on IMM. No questions voiced. Provided pt a copy. Initialed, dated, & timed a copy & placed in chart.
--- NOTE | 2024-07-16 15:22 | P.PN_ITS ---
Subjective 2 Subjective: Patient is status post endoscopic evaluation today. Medications: Reviewed: Yes Vitals/I&O/Wt Last Vital Signs Temp 98.2 F 07/16/24 11:23 Pulse 74 07/16/24 13:54 Resp 16 07/16/24 11:23 BP 111/70 07/16/24 11:23 Pulse Ox 98 07/16/24 13:54 O2 Del Method Nasal Cannula 07/16/24 13:54 O2 Flow Rate 1 07/16/24 13:54 07/16/24 07/16/24 07/16/24 06:59 14:59 22:59 Intake Total 966.667 / 2316.317 1330.35 / 1330.35 Balance 966.667 / 2316.317 1330.35 / 1330.35 Weight last 48 hrs Weight 75.705 kg Weight 74.843 kg Weight 70.307 kg Physical Exam 2 Narrative: General: No acute distress, AO x3 HEENT: PERRLA, pupils bilaterally equal and reactive, pallors not present Chest: Normal vesicular breath sounds, no added sounds, equal good air entry bilaterally CVS: S1-S2 regular, no murmurs, no tachycardia, no gallops, no rubs Abdomen: Soft, nontender, no organomegaly, bowel sounds present Neuro: No focal deficits, no facial deformity, AO x3, power 5/5 in all limbs Data 07/16/24 10:34 07/16/24 04:23 A&P Assessment and plan (1) Upper GI bleed: Continue with Protonix twice a day 40 mg IV. Hold aspirin and Plavix. Hold blood pressure medicines for now except for the metoprolol 25 mg XL daily. Patient will be n.p.o. after midnight and should be only on clear liquids or ice chips for now until morning for EGD (2) Orthostatic hypotension: Additional second liter bolus now and continue with IV fluids we will check orthostatic blood pressures every shift (3) ASHD (arteriosclerotic heart disease): Stable with LAD drug-eluting stent. He has had this since 2018. Consider dropping the clopidogrel (4) Current smoker: Start nicotine patch 21 mg daily. I counseled the patient regarding vascular disease and smoking. Plan July 16, 2024 Upper GI endoscopy showed no abnormalities in the esophagus. There was some chronic striped gastritis in the prepyloric area. There were changes of moderate chronic gastritis in the pylorus. In the duodenal bulb multiple erosions were evident without any signs of actively bleeding. About 75% of the bulb had erosions with fibrin deposition and possible skip lesions concerning for possible Crohn's disease. Biopsies were unable to be taken as patient is on dual antiplatelet therapy with aspirin and Plavix. In reviewing patient's chart, patient had coronary intervention in 2017. He was recommended to stop Plavix on follow-up in November 2023 but states that he was unaware of this plan. Since he has recently had a GI bleed we will discontinue both aspirin and Plavix. Patient is recommended from surgical site to undergo a repeat endoscopy with biopsy to assess for possible Crohn's. The Plavix will likely remain on hold until this endoscopy can be completed. Aim to resume aspirin in 2 weeks if hemoglobin is showing improvement For now we will continue with Protonix 40 mg p.o. twice daily and add Carafate. Patient is to discontinue use of NSAIDs and recommended to stop smoking. Last hemoglobin postendoscopy noted at 8.4. To be rechecked every 8 hours. PDMP PDMP Reviewed: Not Reviewed Attestations 2 Medical Necessity Statement*: GI bleed status post endoscopic evaluation today. Coding Level of Care Code Acute Code for g Fwd Diagnoses Upper GI bleed K92.2 Orthostatic hypotension I95.1 ASHD (arteriosclerotic heart disease) I25.10 Current smoker F17.200
[2024-07-16] MEDS: pantoprazole DR 40 mg Tablet PO (17:50)
[2024-07-16 21:04] LABS: Hematocrit 23.4 % (37-53)
[2024-07-17] VITALS (7 sets, daily range): BP systolic 93–121; BP diastolic 58–75; PULSE 66–77; RESP 17–18; TEMP 36.5–36.7; O2SAT 97–100
[2024-07-17 03:44] LABS: Basophils % 0.6 %; Eosinophils # 0.1 10^3/uL (0.0-0.8); Eosinophils % 2.3 %; Hematocrit 23.4 % (37-53); Lymphocytes # 1.2 10^3/uL (0.8-4.8); Lymphocytes % 24.8 %; Mean Corpuscular HGB Conc 33.8 g/dL (30-55); Mean Corpuscular Hemoglobin 31.1 pg (27-33); Mean Corpuscular Volume 92.1 fl (82-101); Mean Platelet Volume 9.2 fL (7.4-10.4); Monocytes # 0.3 10^3/uL (0.2-0.9); Monocytes % 6.3 %; Neutrophils # 3.12 10^3/uL (1.8-7.7); Neutrophils % 65.8 %; Nucleated Red Blood Cells % 0 %; Platelet Count 210 10^3/cmm (157-399); Red Blood Count 2.54 10^6/uL (3.85-5.65); Red Cell Distribution Width 13.2 % (12.1-15.1); White Blood Count 4.75 10^3/uL (3.29-11.43)
[2024-07-17 04:02] LABS: Alanine Aminotransferase 18 U/L (0-41); Albumin Level 3.1 g/dL (3.5-5.2); Alkaline Phosphatase 45 U/L (40-130); Aspartate Amino Transferase 24 U/L (0-40); Blood Urea Nitrogen 32 mg/dL (8-23); Calcium 8.6 mg/dL (8.5-10.5); Carbon Dioxide 25 mmol/L (22-29); Chloride 105 mmol/L (98-107); Creatinine Clr Calc Pharmacy 50.0344; Globulin 2.1 g/dL (1.3-4.6); Glomerular Filtration Rate 50.1 mL/min (90-130); Glucose 93 mg/dL (65-115); Osmolality Calculated 293 mOsm/kg (285-295); Sodium 138 mmol/L (136-145); Total Bilirubin 0.3 mg/dL (0.15-1.2); Total Protein 5.2 g/dL (6.6-8.7)
[2024-07-17] MEDS: sucralfate 1 gm/10 mL Oral Liq UDC PO ×2 (06:31→12:08)
[2024-07-17] MEDS: atorvastatin 40 mg Tablet 20 MG PO (09:37)
[2024-07-17] MEDS: metoprolol succinate ER (24 HR) 25 mg Tablet PO (09:37)
[2024-07-17] MEDS: pantoprazole DR 40 mg Tablet PO (09:38)
--- NOTE | 2024-07-17 09:59 | P.PN_ITS ---
Subjective 2 Subjective: No complaints. Denies abdominal pain and less black stools Vitals/I&O/Wt Last Vital Signs Temp 97.8 F 07/17/24 07:51 Pulse 72 07/17/24 08:14 Resp 18 07/17/24 07:51 BP 106/58 07/17/24 07:51 Pulse Ox 99 07/17/24 08:14 O2 Del Method Nasal Cannula 07/17/24 08:14 O2 Flow Rate 1 07/17/24 09:30 07/16/24 07/17/24 07/17/24 22:59 06:59 14:59 Intake Total 1400 / 2730.35 700 / 3430.35 600 / 600 Balance 1400 / 2730.35 700 / 3430.35 600 / 600 Weight last 48 hrs Weight 155 lb 11.2 oz Weight 166 lb 14.4 oz Weight 165 lb Weight 155 lb Physical Exam 2 Narrative: Patient is a well developed well nourished and in NAD and is afebrile with vitals stable and is answering questions appropriately with a normal affect and is alert and oriented x3 HEENT: normocephalic with normal external ears and nonicteric, oral mucosa moist and dentition normal for age, trachea midline with no large masses visualized Heart: RRR, no gallops murmurs or rubs, normal PMI with no thrills Lungs: normal excursions, no loud audible wheezing, no subcutaneous emphysema Abdomen: nondistended, no gross hepatosplenomegaly, no masses, no rigidity or rebound, no loud borborygmi Neuro: nonfocal, PETERS, grossly normal sensation Musculoskeletal: good muscle tone, no fasciculations, normal gait Skin: pink warm and dry with no rashes or ecchymosis Vascular: good radial pulses, no ulceration, less than 2 second capillary refill in hand : deferred Data 07/17/24 03:16 07/17/24 03:16 A&P Assessment and plan (1) Upper GI bleed: Hgb appears to be stable. He is having less black stools and normally has BM daily. This may be old blood and not indicative of active bleeding. In 6 weeks he shoud be rescoped with EGD and with biopsies while off plavix. He should go home on PPI and avoid ulcer promoting foods and drugs and drinks. He should avoid smoking and nicotine and steroids and NSAID/aspirin. PDMP PDMP Reviewed: Not Reviewed Attestations 2 Medical Necessity Statement*: Patient being monitored for active bleeding Coding Level of Care Code 87800 Diagnoses Upper GI bleed K92.2
--- NOTE | 2024-07-17 12:56 | PM.DCS ---
Discharge Providers Date of Admission: 07/15/24 20:36 Date of Discharge: July 17, 2024 Attending Provider at Admission: Kayode August MD Attending Provider at Discharge: Karin Toure MD Diagnoses at Discharge Discharge Diagnosis (1) Upper GI bleed: Status: Acute (2) Acute blood loss anemia: Status: Acute (3) Hypotension: Status: Acute Reason for Visit Reason for Visit: blood in stool Brief History: Patient is a 68-year-old male with a past medical history of coronary artery disease, last intervention in 2018, on dual antiplatelet therapy with aspirin and Plavix who presented to the emergency room with chief complaints of melena. He was experiencing some indigestion and heartburn and then woke up in the morning 2 black tarry stools. He estimates he had about 10 episodes that day. His hemoglobin initially was down to 10 from 14 at baseline. During the course of admission it continued to trend down however has now stabilized at around 7.5. Review of his medication list shows that patient takes naproxen and is a current active smoker. Patient was hypotensive upon admission but this improved with fluid resuscitation. He did not require any blood transfusion as hemoglobin stabilized above the threshold of 7 for transfusion. He underwent upper GI endoscopy on July 16, 2024 with general surgery that showed that there was a possible Schatzki's ring at the gastroesophageal junction. In the prepyloric area some chronic striped gastritis was seen. There was no mucosal bleeding. In the pylorus chronic gastritis was noted. In the duodenal bulb there were multiple erosions that were evident. These were not actively bleeding. Blood 75% of the bulb had erosions with fibrin deposition and possible skip lesions associated with possible Crohn's disease. No active bleeding was encountered. Biopsies were unable to be taken as patient was on Plavix. He is recommended to be discharged today on Protonix 40 mg p.o. twice daily and Carafate 1 g p.o. twice daily. Recommended repeat endoscopy in 6 weeks to enable biopsy to further assess for Crohn's disease and H. pylori. Referral has been provided to general surgery as an outpatient. He suffered acute blood loss anemia, hemoglobin is stabilized currently at 7.9 on serial check. Melena appears to be resolved today. He has had no bowel movements today. Yesterday he noticed some black, however improved over previous, likely to be related to transit of old blood. He is recommended to undergo a serial H&H check in 1 week. Since he does not have an established primary care provider, he was given a prescription to check his H&H at the urgent care in 1 week. His Plavix has been discontinued going forward. In reviewing cardiology notes from November 2023, it appears Plavix was discontinued at that time. Aspirin is being held for 1 week pending repeat H&H check. If hemoglobin remains stable, he should be able to resume aspirin 81 mg p.o. daily. Appointment referral has been provided to see cardiology since antiplatelets are being changed. Simvastatin has been continued. Lisinopril was additionally held at the time of discharge as patient blood pressure remained normotensive with systolic ranging between 100-110 at the time of discharge. He is instructed to maintain a blood pressure chart and take lisinopril only if systolic blood pressure is over 130. He is currently on room air, vital signs are stable, he is being discharged in stable to improved condition. Explained the red flag signs of recurrent GI bleeding, to return to the ER in case of any repeat melanotic bowel movements, dizziness, chest pain, hypotension. Physical Exam Narrative: General: No acute distress, AO x3 HEENT: PERRLA, pupils bilaterally equal and reactive, pallors not present Chest: Normal vesicular breath sounds, no added sounds, equal good air entry bilaterally CVS: S1-S2 regular, no murmurs, no tachycardia, no gallops, no rubs Abdomen: Soft, nontender, no organomegaly, bowel sounds present Neuro: No focal deficits, no facial deformity, AO x3, power 5/5 in all limbs Discharge Data Studies Completed and Pending Laboratory Results WBC 4.75 10^3/uL (3.29-11.43) 07/17/24 03:16 RBC 2.54 10^6/uL (3.85-5.65) L 07/17/24 03:16 Hgb 7.90 g/dL (11.27-16.99) L 07/17/24 03:16 Hct 23.4 % (37-53) L 07/17/24 03:16 MCV 92.1 fl (82-101) 07/17/24 03:16 MCH 31.1 pg (27-33) 07/17/24 03:16 MCHC 33.8 g/dL (30-55) 07/17/24 03:16 RDW 13.2 % (12.1-15.1) 07/17/24 03:16 Plt Count 210 10^3/cmm (157-399) 07/17/24 03:16 MPV 9.2 fL (7.4-10.4) 07/17/24 03:16 Neut % (Auto) 65.8 % 07/17/24 03:16 Lymph % (Auto) 24.8 % 07/17/24 03:16 [place] % (Auto) 6.3 % 07/17/24 03:16 Eos % (Auto) 2.3 % 07/17/24 03:16 Baso % (Auto) 0.6 % 07/17/24 03:16 Neut # (Auto) 3.12 10^3/uL (1.8-7.7) 07/17/24 03:16 Lymph # (Auto) 1.2 10^3/uL (0.8-4.8) 07/17/24 03:16 [place] # (Auto) 0.3 10^3/uL (0.2-0.9) 07/17/24 03:16 Eos # (Auto) 0.1 10^3/uL (0.0-0.8) 07/17/24 03:16 Baso # (Auto) 0.0 10^3/uL (0.0-0.1) 07/17/24 03:16 Nucleated RBC % (auto) 0 % 07/17/24 03:16 Nucleated RBCs # 0.0 /100WBC 07/17/24 03:16 PT 13.00 SECONDS (12.1-14.9) 07/15/24 18:08 INR 0.92 (0.8-1.2) 07/15/24 18:08 APTT 23.8 SECONDS (23.9-36.7) L 07/15/24 18:08 Sodium 138 mmol/L (136-145) 07/17/24 03:16 Potassium 4.0 mmol/L (3.5-5.1) 07/17/24 03:16 Chloride 105 mmol/L (98-107) 07/17/24 03:16 Carbon Dioxide 25 mmol/L (22-29) 07/17/24 03:16 Anion Gap 12.0 (5-19) 07/17/24 03:16 BUN 32 mg/dL (8-23) H 07/17/24 03:16 Creatinine 1.4 mg/dL (0.7-1.2) H 07/17/24 03:16 GFR Calculation 50.1 mL/min (90-130) L 07/17/24 03:16 Glucose 93 mg/dL (65-115) 07/17/24 03:16 Calculated Osmolality 293 mOsm/kg (285-295) 07/17/24 03:16 Lactic Acid 2.1 mmol/L (0.5-2.2) 07/15/24 18:08 Lactic Acid (Sepsis) 1.2 mmol/L (0.5-2.2) 07/15/24 20:15 Calcium 8.6 mg/dL (8.5-10.5) 07/17/24 03:16 Total Bilirubin 0.3 mg/dL (0.15-1.2) 07/17/24 03:16 AST 24 U/L (0-40) 07/17/24 03:16 ALT 18 U/L (0-41) 07/17/24 03:16 Alkaline Phosphatase 45 U/L (40-130) 07/17/24 03:16 Total Protein 5.2 g/dL (6.6-8.7) L 07/17/24 03:16 Albumin 3.1 g/dL (3.5-5.2) L 07/17/24 03:16 Globulin 2.1 g/dL (1.3-4.6) 07/17/24 03:16 Blood Type O Positive 07/15/24 18:08 Rho(D) Type Rh positive 07/15/24 18:08 Antibody Screen Negative 07/15/24 18:08 Vitals Last Vital Signs Temp 98.0 F 07/17/24 11:09 Pulse 67 07/17/24 12:08 Resp 18 07/17/24 11:09 BP 121/75 07/17/24 12:08 Pulse Ox 100 07/17/24 11:09 O2 Del Method Nasal Cannula 07/17/24 11:09 O2 Flow Rate 1 07/17/24 09:30 Discharge Plan Discharge Patient Disposition: Home Condition: Stable Prescriptions: New ferrous sulfate 325 mg (65 mg iron) tablet,delayed release (DR/EC) 325 mg PO DAILY Qty: 30 0RF sucralfate 100 mg/mL Suspension 1 g PO AC&BEDTIME 30 Days Qty: 30 0RF pantoprazole 40 mg Tablet,Delayed Release (Dr/Ec) 40 mg PO BID 30 Days Qty: 60 0RF vitamin U82-dsypa acid 500-400 mcg tablet 1 tab PO DAILY Qty: 30 0RF Rx Instructions: administer with a meal Continued metoprolol succinate 25 mg tablet extended release 24 hr 25 mg PO DAILY Qty: 90 3RF hydrochlorothiazide 25 mg tablet See Rx Instructions .ROUTE .COMPLEX Qty: 90 3RF Dose Instruction: TAKE 2 TABLETS (25MG) DAILY Rx Instructions: TAKE 1 TABLETS (25MG) DAILY simvastatin 40 mg tablet See Rx Instructions .ROUTE .COMPLEX Qty: 90 3RF Dose Instruction: TAKE 1 TABLET DAILY Rx Instructions: TAKE 1 TABLET BEDTIME acetaminophen [Tylenol Extra Strength] 500 mg Capsule 1,000 mg PO Q6H PRN (Reason: Pain) Held aspirin [Adult Low Dose Aspirin] 81 mg tablet,delayed release (DR/EC) 81 mg PO DAILY Hold Instructions: Resume on 07/31/24. hold until cardiology follow up lisinopril 40 mg tablet 40 mg PO DAILY Qty: 90 3RF Hold Instructions: Resume on 07/22/24. check BP and resume once systolic is > 120 Discontinued clopidogrel [Plavix] 75 mg tablet 75 mg PO DAILY Qty: 90 3RF naproxen sodium 220 mg Tablet 440 mg PO BID PRN (Reason: Pain) Discharge Orders: Discharge Order (Routine); Ordered 07/17/24 Ordered By: Karin Toure Other Ambulatory Orders: Hemoglobin and Hematocrit (Routine) Timeframe: 1 Week Facility: [facility] - Location: Lab - Main Lab Ordered By: Karin Toure Referrals: Leon Montoya MD [Physician, General Surgery] - 1 week Referral Note: hospital discharge follow up or GI bleed Bereket Duque M.D [Physician, Cardiology] - 2 weeks Referral Note: h/o CAD on DAPT, ASA, plavix d/c due to GI fbleed, needs expedited f/up Tj Armstrong MD [Physician, Family Practice] - 2 weeks Referral Note: new patient, establish care, hospital discharge follow up for GI bleed Discharge Diet: Usual diet Discharge Activity: Resume usual activity Patient Instructions: GI Post Discharge Instructions w/ Anesthesia, Opioid Safety Activity Restrictions/Additional Instructions: Your Plavix has been discontinued going forward. Hold aspirin until repeat hemoglobin check in 1 week. This will need to be done at the urgent care center since no primary care physician is currently established. The urgent care provider will reevaluate your hemoglobin and if stable you can resume aspirin 81 mg p.o. daily. You have also been provided a referral to establish with a primary care physician as an outpatient. 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 Your blood pressure in the hospital was on the lower side therefore lisinopril has been discontinued at the time of discharge. Please recheck your blood pressure tomorrow and take lisinopril only if you are top number (systolic blood pressure) is 130 or higher. You will need to follow-up with general surgery for repeat endoscopy in 6 weeks so that biopsies can be taken to further evaluate for possible Crohn's disease and for Helicobacter pylori infection check. Discharge Attestations Time Spent in Discharge Care*: greater than 30 min Quality Metrics Clinical Quality Measures [ No reported AMI, CVA or VTE this stay] Coding Level of Care Code Acute Code for Chg Fwd Diagnoses Upper GI bleed K92.2 Acute blood loss anemia D62 Hypotension I95.9
--- NOTE | 2024-07-17 13:54 | PC.NURSE ---
Discharge paperwork discussed with patient and spouse. All questions were answered. IV was removed. Patient ambulated to exit, escorted by this nurse at 1345. All belongings in hand.
== END 2024-07-17 13:45 | disposition home or self-care (01) | DRG 379 ==
LOC: ER 19:24 → MEDSURG 20:37
PROVIDERS: Specialist; Admitting Provider Internal Medicine; Emergency Provider Emergency Medicine; Visit Provider Student in an Organized Health Care Education/Training Program
PROC: 0DJ08ZZ Inspection of Upper Intestinal Tract, Via Natural or Artificial Opening Endoscopic (ICD-10-PCS; principal; 2024-07-16 09:15)
DX: K29.51 Unspecified chronic gastritis with bleeding (principal); K22.2 Esophageal obstruction; K44.9 Diaphragmatic hernia without obstruction or gangrene; I95.1 Orthostatic hypotension; I25.10 Atherosclerotic heart disease of native coronary artery without angina pectoris; I10 Essential (primary) hypertension; E78.5 Hyperlipidemia, unspecified; F17.210 Nicotine dependence, cigarettes, uncomplicated; K26.9 Duodenal ulcer, unspecified as acute or chronic, without hemorrhage or perforation; I25.2 Old myocardial infarction; Z79.02 Long term (current) use of antithrombotics/antiplatelets; Z79.82 Long term (current) use of aspirin; Z95.5 Presence of coronary angioplasty implant and graft
CPT/HCPCS: 36415; 43235; 80048; 80053; 83605; 85014; 85018; 85025; 85610; 85730; 86850; 86900; 96361; 96374; 99285; J2470; J2704; J7030; J9999

== ENCOUNTER → 2024-07-24 12:26 | Outpatient (BNVA) | payer MEDICARE, SELFPAY | DX: K92.2 Gastrointestinal hemorrhage, unspecified (principal); D64.9 Anemia, unspecified | CPT/HCPCS: 85014; 85018 ==

== ENCOUNTER 2024-07-27 11:09 | Outpatient (CLI) | payer MEDICARE, SELFPAY ==
--- NOTE | 2024-07-27 11:14 | XRR_ITS ---
PROCEDURE INFORMATION: Exam: XR Right Hip Exam date and time: 07/27/2024 11:29 AM Age: 68 years old Clinical indication: Hip pain; Right hip; Additional info: Right hip pain TECHNIQUE: Imaging protocol: Radiologic exam of the right hip. Views: 1 view hip with pelvis when performed. COMPARISON: CT ang ches abdpel [id number] 10/12/2017 3:36 PM FINDINGS: Bones/joints: No acute fracture or dislocation. Moderate arthrosis right hip joint space narrowing and osteophytosis. Soft tissues: Vascular calcifications. XR/XR hip RT 2-3V wo/w pel* [id number] IMPRESSION: 1. No acute fracture or dislocation. 2. Moderate arthrosis as above.
== END 2024-07-27 11:10 | disposition home or self-care (01) ==
DX: M16.11 Unilateral primary osteoarthritis, right hip (principal); M25.751 Osteophyte, right hip; M79.89 Other specified soft tissue disorders
CPT/HCPCS: 73502

== ENCOUNTER → 2024-07-28 14:10 | Outpatient (BNVA) | payer MEDICARE, SELFPAY | PROVIDERS: Visit Provider Surgery | DX: Z09 Encounter for follow-up examination after completed treatment for conditions other than malignant neoplasm (principal); D50.9 Iron deficiency anemia, unspecified | CPT/HCPCS: 99204; 99214 ==

== ENCOUNTER 2024-09-02 07:54 | Day surgery (SDC) | payer MEDICARE, SELFPAY ==
[2024-09-02 08:07] VITALS: BP 126/86; PULSE 86; RESP 18; TEMP 36.4; O2SAT 97; BMI 22.2
[2024-09-02] MEDS: sodium chloride 0.9% 1,000 ML 15 ML IV (08:13)
--- NOTE | 2024-09-02 08:20 | W.PM.OPSFHP ---
Same Day Surgery H&P Indication for Procedure/HPI DATE OF PROCEDURE: September 02, 2024 CHIEF COMPLAINT/INDICATIONFOR SURGICAL PROCEDURE: history of GI bleeding PREOP DIAGNOSIS: history of GI bleeding PLANNED PROCEDURE: Operation Date: 09/02/24 09:30 Proposed Procedures p EGD [id number] G0105 D50.9(Not Applicable) - Leon Montoya MD s Colonoscopy(Not Applicable) - Leon Montoya MD Medications/Allergies* Home Medications ?Medication ?Instructions ?Recorded ?Confirmed ?Type hydrochlorothiazide 25 mg tablet 25 mg PO DAILY 08/31/24 08/31/24 History simvastatin 40 mg tablet 40 mg PO BEDTIME 08/31/24 08/31/24 History Allergies/Adverse Reactions Allergy/AdvReac Type Severity Reaction Status Date / Time No Known Allergies Allergy Verified 08/31/24 10:26 Current Medications: Generic Name Dose Route Start Last Admin Trade Name Freq PRN Reason Stop Dose Admin Sodium Chloride 1,000 mls @ 15 mls/hr 09/02/24 07:57 09/02/24 08:13 Sodium Chloride 0.9% IV 09/03/24 07:56 15 mls/hr .Q24H PRN Administration COLONOSCOPY FLUIDS Pertinent History/Comorbid Conditions* Medical History (Updated 07/27/24 @ 12:22 by Cheryl Eckert NP) Osteoarthritis of right hip Presence of drug coated stent in LAD coronary artery Lung nodule Current smoker ASHD (arteriosclerotic heart disease) Hyperlipidemia HTN (hypertension) History of non-ST elevation myocardial infarction (NSTEMI) Surgical History (Updated 07/27/24 @ 10:47 by Cheryl Eckert NP) H/O heart artery stent H/O vasectomy S/P knee surgery ACL left knee Family History (Updated 07/27/24 @ 10:46 by Cheryl Eckert NP) Father Diabetes Father Cancer Father Hypertension Father Social History Smoking and tobacco/nicotine status: current every day tobacco/nicotine user cigarettes Packs smoked per day: 1 Years cigarettes smoked: 50 Alcohol intake: former Additional social history: Wants full code Household members: spouse Marital status: Pertinent Exam Findings alert, oriented x 3, clear to auscultation bilaterally and regular rate & rhythm Recommendations Surgery/Procedure today Coding Level of Care Code Acute Code for Chg Fwd
--- NOTE | 2024-09-02 08:33 | ANES.PREANE2 ---
Pre-Anesthetic Assessment Height/Weight: Height 1.78 m Weight 70.307 kg Temp Pulse Resp BP Pulse Ox O2 Del Method 97.6 F 86 18 126/86 97 Room Air 09/02/24 08:07 09/02/24 08:07 09/02/24 08:07 09/02/24 08:07 09/02/24 08:07 09/02/24 08:07 Preop Diagnosis: history of GI bleeding Operation Date: 09/02/24 09:30 Proposed Procedures p EGD [id number] G0105 D50.9(Not Applicable) - Leon Montoya MD s Colonoscopy(Not Applicable) - Leon Montoya MD Familial anesthetic complications: none Was Beta Geetha taken within 24 hours: Yes Was Clonidine taken within 24 hours: N/A Last intake: Intake Last Liquid Date 09/01/24 Last Liquid Time 22:00 Last Solid Date 08/31/24 Last Solid Time 22:00 Social Tobacco and No alcohol 1 PPD pack(s) per day Exam alert, oriented x 3, clear to auscultation bilaterally and regular rate & rhythm Airway Submandibular: within normal limits Cervical ROM: within normal limits Mallampati: Class III Dentition: full History/ROS No significant history except as noted and No significant complaints Pulmonary None reported CV/HEM Coronary Artery Disease, Hypertension and Myocardial Infarction None reported Hepatic None reported GI Hiatal Hernia Metabolic None reported Musc/skel None reported Neuropsych None reported Anesthetic Plan ASA status: 2 Anesthesia: MAC Risk of > 500 ml blood loss (7ml/kg in children): No Medications/Allergies Home Medications ?Medication ?Instructions ?Recorded ?Confirmed ?Last Taken ?Type metoprolol succinate 25 mg 25 mg PO DAILY #90 tabs 02/10/24 08/31/24 09/02/24 07:30 Rx tablet,extended release 24 hr vitamin B12 500 mcg-folic acid 400 1 tab PO DAILY #30 tabs 07/17/24 08/31/24 09/01/24 Rx mcg tablet ferrous sulfate 325 mg (65 mg 325 mg PO DAILY #30 tabs 07/27/24 08/31/24 09/01/24 Rx iron) tablet,delayed release duloxetine 20 mg capsule,delayed 20 mg PO BID #60 caps 08/25/24 08/31/24 09/01/24 Rx release hydrochlorothiazide 25 mg tablet 25 mg PO DAILY 08/31/24 08/31/24 09/01/24 History simvastatin 40 mg tablet 40 mg PO BEDTIME 08/31/24 08/31/24 09/01/24 History Allergies Allergy/AdvReac Type Severity Reaction Status Date / Time No Known Allergies Allergy Verified 08/31/24 10:26 Current Medications Generic Name Dose Route Start Last Admin Trade Name Freq PRN Reason Stop Dose Admin Sodium Chloride 1,000 mls @ 15 mls/hr 09/02/24 07:57 09/02/24 08:13 Sodium Chloride 0.9% IV 09/03/24 07:56 15 mls/hr .Q24H PRN Administration COLONOSCOPY FLUIDS PFSH Anesthesia Medical History Osteoarthritis of right hip Presence of drug coated stent in LAD coronary artery Lung nodule Current smoker ASHD (arteriosclerotic heart disease) Hyperlipidemia HTN (hypertension) History of non-ST elevation myocardial infarction (NSTEMI) Surgical History H/O heart artery stent H/O vasectomy S/P knee surgery ACL left knee Family History Father Diabetes Hypertension Cancer Social History Smoking and tobacco/nicotine status: current every day tobacco/nicotine user cigarettes Packs smoked per day: 1 Years cigarettes smoked: 50 Alcohol intake: former Additional social history: Wants full code Household members: spouse Marital status:
[2024-09-02 09:28] VITALS: BP 75/58; PULSE 52; RESP 18; TEMP 36.3; O2SAT 90
[2024-09-02 09:43] VITALS: BP 103/78; PULSE 54; RESP 18; TEMP 36.2; O2SAT 96
--- NOTE | 2024-09-02 10:14 | ANE.PACU2 ---
Inpatient post-anesthesia follow up: Airway intact: Yes Vital signs: Temperature 97.2 F Pulse Rate 54 Respiratory Rate 18 Blood Pressure 103/78 Pulse Oximetry 96 Oxygen Delivery Me thod Room Air Oxygen Flow Rate Fraction of Inspir ed Oxygen Hydration adequate: Yes Nausea and vomiting: No Pain level: 1 Mental status: Baseline
== END 2024-09-02 10:14 | disposition home or self-care (01) ==
PROVIDERS: Visit Provider Surgery
PROC: 0DJ08ZZ Inspection of Upper Intestinal Tract, Via Natural or Artificial Opening Endoscopic (ICD-10-PCS; principal; 2024-09-02 09:30)
PROC: 0DJD8ZZ Inspection of Lower Intestinal Tract, Via Natural or Artificial Opening Endoscopic (ICD-10-PCS; CPT 45378; 2024-09-02 09:30)
DX: Z12.11 Encounter for screening for malignant neoplasm of colon (principal); K63.5 Polyp of colon; D12.2 Benign neoplasm of ascending colon; D12.8 Benign neoplasm of rectum; I10 Essential (primary) hypertension; E78.5 Hyperlipidemia, unspecified; I25.10 Atherosclerotic heart disease of native coronary artery without angina pectoris; K44.9 Diaphragmatic hernia without obstruction or gangrene; I25.2 Old myocardial infarction; K26.9 Duodenal ulcer, unspecified as acute or chronic, without hemorrhage or perforation; K29.70 Gastritis, unspecified, without bleeding; F17.210 Nicotine dependence, cigarettes, uncomplicated; Z95.5 Presence of coronary angioplasty implant and graft; Z79.899 Other long term (current) drug therapy
CPT/HCPCS: 43239; 45380; 45385; 88305; J2704; J7030

== ENCOUNTER → 2024-09-22 14:11 | Outpatient (BNVA) | payer MEDICARE, SELFPAY | PROVIDERS: Visit Provider Surgery | DX: Z09 Encounter for follow-up examination after completed treatment for conditions other than malignant neoplasm (principal) | CPT/HCPCS: 99213 ==

== ENCOUNTER → 2024-09-23 14:36 | Outpatient (BNVA) | payer MEDICARE, SELFPAY | DX: E78.49 Other hyperlipidemia (principal); K92.2 Gastrointestinal hemorrhage, unspecified | CPT/HCPCS: 80053; 80061; 85025 ==

== ENCOUNTER → 2024-09-30 12:24 | Outpatient (BNVA) | payer MEDICARE, SELFPAY | PROVIDERS: Visit Provider Internal Medicine | DX: Z09 Encounter for follow-up examination after completed treatment for conditions other than malignant neoplasm (principal); I25.10 Atherosclerotic heart disease of native coronary artery without angina pectoris; I10 Essential (primary) hypertension; F17.200 Nicotine dependence, unspecified, uncomplicated; E78.49 Other hyperlipidemia; R91.1 Solitary pulmonary nodule | CPT/HCPCS: 99214 ==

== ENCOUNTER → 2024-10-05 14:55 | Outpatient (BNVA) | payer MEDICARE, SELFPAY | DX: E87.6 Hypokalemia (principal) | CPT/HCPCS: 84132 ==

== ENCOUNTER 2024-10-21 12:27 | Outpatient (CLI) | payer MEDICARE, SELFPAY ==
[2024-10-21 12:44] LABS: Hematocrit 42.7 % (37-53); Hemoglobin 14.20 g/dL (11.27-16.99); Mean Corpuscular HGB Conc 33.3 g/dL (30-55); Mean Corpuscular Hemoglobin 28.9 pg (27-33); Mean Corpuscular Volume 86.8 fl (82-101); Nucleated Red Blood Cells % 0 %; Platelet Count 292 10^3/cmm (157-399); Red Blood Count 4.92 10^6/uL (3.85-5.65); White Blood Count 5.78 10^3/uL (3.29-11.43)
== END 2024-10-21 12:28 | disposition home or self-care (01) ==
LOC: LAB 12:29
PROVIDERS: Visit Provider Internal Medicine
DX: I10 Essential (primary) hypertension (principal); I25.10 Atherosclerotic heart disease of native coronary artery without angina pectoris; I25.2 Old myocardial infarction
CPT/HCPCS: 36415; 85025

== ENCOUNTER 2024-12-06 09:33 | Outpatient (CLI) | payer MEDICARE, SELFPAY ==
--- NOTE | 2024-12-06 09:35 | XRR_ITS ---
PROCEDURE INFORMATION: Exam: XR Right Hand Exam date and time: 12/06/2024 09:46 AM Age: 69 years old Clinical indication: Pain; Hand; Bilateral; Additional info: Swelling and pain TECHNIQUE: Imaging protocol: Radiologic exam of the right hand. Views: 3 or more views. COMPARISON: No relevant prior studies available. FINDINGS: Bones/joints: Normal. Soft tissues: Normal. XR/XR hand RT min 3V* [id number] IMPRESSION: No acute findings.
--- NOTE | 2024-12-06 09:35 | XRR_ITS ---
PROCEDURE INFORMATION: Exam: XR Left Hand Exam date and time: 12/06/2024 09:46 AM Age: 69 years old Clinical indication: Pain; Hand; Bilateral; Additional info: Hand pain/swelling TECHNIQUE: Imaging protocol: Radiologic exam of the left hand. Views: 3 or more views. COMPARISON: No relevant prior studies available. FINDINGS: Bones/joints: Normal. Soft tissues: Normal. XR/XR hand LT min 3V* [id number] IMPRESSION: No acute findings.
== END 2024-12-06 09:34 | disposition home or self-care (01) ==
LOC: RAD 09:33
DX: M79.641 Pain in right hand (principal); M79.642 Pain in left hand; I10 Essential (primary) hypertension; Z12.5 Encounter for screening for malignant neoplasm of prostate; R35.0 Frequency of micturition; M79.89 Other specified soft tissue disorders
CPT/HCPCS: 73130; 81000; 84550; 85651; 86140; 86160; 86162; 86235; 86255; 86376; 87086; G0103